=== PATIENT | female | born 1985 | race Caucasian/White ===

== ENCOUNTER 2021-10-26 09:05 | Day surgery (SDC) | payer BC ==
[~2021-10-26 09:05] MED LIST: Lactated Ringers 1,000 ML IV SCH
[2021-10-26] MEDS ORDERED: Propofol 200 MG/20 ML SDV ONE (10:44)
[2021-10-26] MEDS ORDERED: fentaNYL 100 MCG/2 ML SDV ONE (10:45)
== END 2021-10-26 12:05 | disposition home or self-care (01) ==
LOC: VM.SDS 09:05
PROVIDERS: ATTEND Surgery
DX: K31.89 Other diseases of stomach and duodenum (principal); K31.819 Angiodysplasia of stomach and duodenum without bleeding; E78.2 Mixed hyperlipidemia; F41.1 Generalized anxiety disorder; E03.8 Other specified hypothyroidism; K59.00 Constipation, unspecified; F32.A Depression, unspecified; Z86.2 Personal history of diseases of the blood and blood-forming organs and certain disorders involving the immune mechanism; Z87.42 Personal history of other diseases of the female genital tract
CPT/HCPCS: 00731; J2704; J3010; J7120